=== PATIENT | female | born 1990 | race Caucasian/White ===

== ENCOUNTER 2020-03-07 20:52 | Emergency (ER) | payer BC ==
[~2020-03-07] VITALS: Ht 175.3 cm; Wt 72.6 kg
--- NOTE | 2020-03-07 21:04 | NUR ---
Dr. Villar at bedside for MSE
[2020-03-07] MEDS ORDERED: ASPIRIN 81 MG TAB.CHEW PO ONE (21:15)
[2020-03-07] MEDS ORDERED: HYDROMORPHONE 1 MG/1 ML DISP.SYRIN IV ONE (21:15)
[2020-03-07] MEDS ORDERED: ONDANSETRON 4 MG/2 ML VIAL IV ONE (21:15)
[2020-03-07] MEDS ORDERED: HYDROMORPHONE 1 MG/1 ML DISP.SYRIN ONE (21:27)
[2020-03-07] MEDS ORDERED: ASPIRIN 81 MG TAB.CHEW ONE (21:28)
[2020-03-07] MEDS ORDERED: ONDANSETRON 4 MG/2 ML VIAL ONE (21:28)
[2020-03-07 21:30] LABS: BASOPHILS # (AUTO) 0.1 K/uL (0.0-8.0); BASOPHILS % (AUTO) 0.8 % (0.0-2.0); EOSINOPHILS # (AUTO) 0.1 K/uL (0.0-0.7); EOSINOPHILS % (AUTO) 1.2 % (0.0-7.0); HEMOGLOBIN 13.8 g/dL (10.9-14.3); LYMPHOCYTES # (AUTO) 4.4 K/uL (20.0-40.0); LYMPHOCYTES % (AUTO) 58.4 % (20.5-51.5); MEAN CORPUSCULAR HEMOGLOBIN 31.2 uug (24.7-32.8); MEAN CORPUSCULAR HGB CONC 35 g/dL (32.3-35.6); MEAN CORPUSCULAR VOLUME 90.5 fL (75.5-95.3); MONOCYTES # (AUTO) 0.6 K/uL (2.0-10.0); MONOCYTES % (AUTO) 7.6 % (0.0-11.0); NEUTROPHILS # (AUTO) 2.4 K/uL (1.8-8.9); PLATELET COUNT (AUTO) 363 K/uL (179-408); RED BLOOD CELL COUNT(AUTO) 4.43 MIL/uL (3.63-4.92); WHITE BLOOD COUNT (AUTO) 7.4 K/uL (3.8-11.8)
[2020-03-07 21:52] LABS: BILIRUBIN,DIRECT 0.2 mg/dL (0.0-0.2); BILIRUBIN,TOTAL 1.3 mg/dL (0.2-1.0); POTASSIUM 3.6 mmol/L (3.5-5.1); TOTAL PROTEIN, SERUM 7.6 g/dL (6.4-8.2)
--- NOTE | 2020-03-08 01:09 | NUR ---
IV removed. Catheter intact and site benign. Pressure and 4x4 gauze applied to site. No bleeding noted. Patient discharged to home in stable condition. Written and verbal after care instructions given. Patient verbalizes understanding of instructions. Stressed follow up or return to ER for worsening s/s. Patient ambulated with steady gait. NAD noted
[2020-03-08 01:13] VITALS: BP 119/62
== END 2020-03-08 01:09 | disposition home or self-care (01) ==
LOC: ER 21:01
DX: R07.9 Chest pain, unspecified (principal); R00.2 Palpitations; M06.9 Rheumatoid arthritis, unspecified; E78.00 Pure hypercholesterolemia, unspecified
CPT/HCPCS: 36415 ×2; 71045; 80048; 80076; 83880; 84484 ×2; 85025; 93005; 96374; 96375; 99285; J1170; J2405; 70030-TC; A4663

== ENCOUNTER 2022-12-26 05:35 | Emergency (ER) | payer BC ==
[~2022-12-26] VITALS: Ht 175.3 cm; Wt 68.0 kg
[2022-12-26] MEDS ORDERED: ONDANSETRON ODT 4 MG TAB.RAPDIS ONE (05:58)
[2022-12-26] MEDS ORDERED: IV NORMAL SALINE 1000 ML BAG IV ONE ×2 (06:00→07:15)
[2022-12-26] MEDS ORDERED: FAMOTIDINE. 20 MG/2 ML VIAL IV ONE ×2 (06:00→06:06)
[2022-12-26] MEDS ORDERED: ONDANSETRON ODT 4 MG TAB.RAPDIS SL ONE (06:00)
[2022-12-26 06:17] LABS: BASOPHILS % (AUTO) 0.1 % (0.0-2.0); EOSINOPHILS % (AUTO) 0.2 % (0.0-7.0); HEMATOCRIT 42.3 % (31.2-41.9); HEMOGLOBIN 14.1 g/dL (10.9-14.3); LYMPHOCYTES # (AUTO) 0.5 K/uL (0.8-4.8); MEAN CORPUSCULAR HEMOGLOBIN 31.2 uug (24.7-32.8); MEAN CORPUSCULAR HGB CONC 33 g/dL (32.3-35.6); MEAN CORPUSCULAR VOLUME 93.5 fL (75.5-95.3); MONOCYTES # (AUTO) 0.8 K/uL (0.1-1.30); NEUTROPHILS # (AUTO) 7.1 K/uL (1.8-8.9); NEUTROPHILS % (AUTO) 84.7 % (38.5-71.5); PLATELET COUNT (AUTO) 340 K/uL (179-408); RED BLOOD CELL COUNT(AUTO) 4.52 MIL/uL (3.63-4.92); RED CELL DISTRIBUTION WIDTH 13.5 % (12.3-17.7); WHITE BLOOD COUNT (AUTO) 8.3 K/uL (3.8-11.8)
[2022-12-26 06:52] LABS: ALBUMIN 4.5 g/dL (3.4-5.0); BILIRUBIN,DIRECT 0.3 mg/dL (0.0-0.2); BILIRUBIN,TOTAL 1.7 mg/dL (0.2-1.0); CREATININE 0.8 mg/dL (0.6-1.3); POTASSIUM 3.4 mmol/L (3.5-5.1)
[2022-12-26] MEDS ORDERED: ONDA4TAB11 PO (07:12)
[2022-12-26 07:37] LABS: DIFFERENTIAL COMMENT 1
[2022-12-26 09:17] VITALS: BP 104/81; O2SAT 97
== END 2022-12-26 09:19 | disposition home or self-care (01) ==
LOC: ER 05:45
DX: K29.20 Alcoholic gastritis without bleeding (principal); E86.0 Dehydration; F10.10 Alcohol abuse, uncomplicated; R10.2 Pelvic and perineal pain; Z79.899 Other long term (current) drug therapy; Y90.9 Presence of alcohol in blood, level not specified
CPT/HCPCS: 99283; 96374; 96361; 80076; 80048; 82962; 83690; 83735; 85025; 84702; J3490; J7040 ×2; A4663; Q0162